=== PATIENT | female | born 1980 | race African-American/Black ===

== ENCOUNTER 2021-02-11 16:53 | Emergency (ER) | payer MEDICARE ==
[~2021-02-11] VITALS: Ht 165.1 cm; Wt 64.1 kg
[2021-02-11 17:13] VITALS: BP 142/89
== END 2021-02-11 22:40 | disposition home or self-care (01) ==
LOC: EMS 16:57
DX: M54.2 Cervicalgia (principal)
CPT/HCPCS: 29530; 99283